=== PATIENT | male | born 1960 | race Caucasian/White ===

== ENCOUNTER 2020-07-31 18:00 | Emergency (ER) | payer MEDICARE ==
[2020-07-31] MEDS ORDERED: SODIUM CHLORIDE 0.9% 1,000 ML IV STA (18:23)
[2020-07-31] MEDS ORDERED: LORazepam 2 MG/ML VIAL IVP STA (18:26)
[2020-07-31 18:32] LABS: BASOPHILS # (AUTO) 0.1 10^3/uL (0.0-0.1); BASOPHILS % (AUTO) 1.1 %; EOSINOPHILS # (AUTO) 0.4 10^3/uL (0.0-0.7); EOSINOPHILS % (AUTO) 3.6 %; HGB - HEMOGLOBIN 14.5 g/dL (14.0-18.0); LYMPHOCYTES # (AUTO) 3.7 10^3/uL (1.5-3.5); LYMPHOCYTES % (AUTO) 37.6 %; MEAN CORPUSCULAR HEMOGLOBIN 29.4 pg (27.0-31.0); MEAN CORPUSCULAR HGB CONC 34.3 g/dL (32.0-36.0); MEAN CORPUSCULAR VOLUME 85.8 fL (80.0-94.0); MEAN PLATELET VOLUME 10.8 fL (7.4-11.4); MONOCYTES # (AUTO) 0.7 10^3/uL (0.0-1.0); MONOCYTES % (AUTO) 7.1 %; NEUTROPHILS # (AUTO) 4.9 10^3/uL (1.5-6.6); NEUTROPHILS % (AUTO) 50.3 %; PLT - PLATELET COUNT 402 10^3/uL (130-450); RED BLOOD COUNT 4.93 10^6/uL (4.70-6.10); RED CELL DISTRIBUTION WIDTH 12.3 % (12.0-15.0); WHITE BLOOD COUNT 9.7 x10^3/uL (4.8-10.8)
[2020-07-31] MEDS ORDERED: levETIRAcetam INJ 500 MG in SODIUM CHLORIDE 0.9% 100ML 100 ML IV STA (18:32)
--- NOTE | 2020-07-31 18:32 | ED Physician Documentation ---
<Frankie Syed - Last Filed: 07/31/20 22:13> PD HPI SEIZURE - Stated complaint Stated Complaint: HIGH BLOOD SUGAR/VOMITING - Chief complaint Chief Complaint: Neuro - History obtained from History obtained from: Patient, Family - History of Present Illness Timing - onset: How many hours ago (several hours ago and increased the past 2 hours.), Today Witnessed: Witnessed Number of seizures: Multiple (patient having left arm and face spasms and twitching, weakness, started earlier today intermittent and then consistent the past 2 hours. Feeling similar to partial seizures he has had in the past.), Lasted > 30 min Description of seizure activity: Focal (left arm and face) Injury during seizure: None Associated symptoms: Headache. No: Chest pain History of seizures: Known seizure disorder (related to prior CVA) Contributing factors: Other (no recent illness). No: Changed meds, Low blood sugar, Fever Similar symptoms before: Diagnosis (focal seizures in the past with similar symptoms.) Review of Systems Constitutional: denies: Fever Nose: denies: Rhinorrhea / runny nose, Congestion Throat: denies: Sore throat Cardiac: denies: Chest pain / pressure Respiratory: denies: Dyspnea, Cough GI: denies: Nausea, Vomiting, Diarrhea Musculoskeletal: denies: Neck pain, Back pain Neurologic: reports: Focal weakness (left arm and leg), Headache PD PAST MEDICAL HISTORY - Past Medical History Cardiovascular: None Respiratory: None Neuro: CVA, Seizure disorder Endocrine/Autoimmune: None - Allergies Allergies/Adverse Reactions: Allergies Allergy/AdvReac Type Severity Reaction Status Date / Time No Known Drug Allergies Allergy Verified 07/31/20 18:19 PD ED PE NORMAL - Vitals Vital signs reviewed: Yes - General General: Alert and oriented X 3, Well developed/nourished, Other (having twitching and spasms of left arm and face, with some trouble speaking. 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 not having spasms of the side right now. Then started having some spasms of left arm. Leg weak but not spasming. ) Eye Opening: Spontaneous Motor: Obeys Commands Verbal: Oriented GCS Score: 15 Results - Rads (name of study) head CT Radiology: Prelim report reviewed (no acute findings.), See rad report PD MEDICAL DECISION MAKING - ED course Complexity details: considered differential (he says the symptoms are c/w prior seizures (partial) and has not had general seizures in the past. Give ativan IV and extra dose Keppra. Check labs. Get CT to ensure not ICH since on anticoags.), d/w patient Departure - Departure Disposition: 01 Home, Self Care Clinical Impression: Seizure Condition: Stable Instructions: ED Seizure Recurrent Follow-Up: YOUR, DOCTOR [Other] - Tomorrow Comments: Take your seizure medicine as directed. Please follow-up with your physician tomorrow. Discharge Date/Time: 07/31/20 20:53 <Omid Luz - Last Filed: 08/01/20 06:31> Results - Vitals Vitals: Vital Signs - 24 hr 07/31/20 07/31/20 07/31/20 18:13 18:44 19:12 Temperature 36.6 C Heart Rate 90 79 81 Respiratory 26 H 14 22 Rate Blood Pressure 141/90 H 133/83 H 152/87 H O2 Saturation 97 95 93 07/31/20 07/31/20 07/31/20 19:30 20:00 20:30 Temperature 36.7 C Heart Rate 81 82 80 Respiratory 14 12 17 Rate Blood Pressure 133/74 H 121/78 132/90 H O2 Saturation 95 95 96 Oxygen O2 Source Room air - Labs Labs: Laboratory Tests 07/31/20 07/31/20 07/31/20 18:17 18:17 18:17 WBC 9.7 RBC 4.93 Hgb 14.5 Hct 42.3 MCV 85.8 MCH 29.4 MCHC 34.3 RDW 12.3 Plt Count 402 MPV 10.8 Neut # (Auto) 4.9 Lymph # (Auto) 3.7 H Swift # (Auto) 0.7 Eos # (Auto) 0.4 Baso # (Auto) 0.1 Absolute Nucleated RBC 0.00 Nucleated RBC % 0.0 PT 11.8 INR 1.1 APTT 26.0 Sodium 132 L Potassium 3.7 Chloride 97 L Carbon Dioxide 20 L Anion Gap 15.0 H BUN 32 H Creatinine 1.5 H Estimated GFR (MDRD) 48 L Glucose 332 H Calcium 8.9 Magnesium 2.1 Total Bilirubin 0.6 AST 16 ALT 18 Alkaline Phosphatase 144 H Total Protein 6.8 Albumin 3.1 L Globulin 3.7 Albumin/Globulin Ratio 0.8 L Lipase 93 H Serum Ketones 07/31/20 18:17 WBC RBC Hgb Hct MCV MCH MCHC RDW Plt Count MPV Neut # (Auto) Lymph # (Auto) Swift # (Auto) Eos # (Auto) Baso # (Auto) Absolute Nucleated RBC Nucleated RBC % PT INR APTT Sodium Potassium Chloride Carbon Dioxide Anion Gap BUN Creatinine Estimated GFR (MDRD) Glucose Calcium Magnesium Total Bilirubin AST ALT Alkaline Phosphatase Total Protein Albumin Globulin Albumin/Globulin Ratio Lipase Serum Ketones NEGATIVE PD MEDICAL DECISION MAKING - ED course Complexity details: reviewed results, re-evaluated patient ED course: Patient was signed out to me at shift change by Dr. Frankie Syed.Patient's labs are reviewed his CT of the head's unremarkable he has not had a seizure during my observation of him. He is back to his baseline he has family at the bedside who will care for him and take him to his physician tomorrow morning.Continue to take Keppra as directed.
[2020-07-31 18:39] LABS: INR 1.1 (0.8-1.2); PT - PROTHROMBIN TIME 11.8 secs (9.9-12.6)
[2020-07-31 18:42] LABS: ALBUMIN 3.1 g/dL (3.2-5.5); ALBUMIN/GLOBULIN RATIO 0.8 (1.0-2.2); BILIRUBIN,TOTAL 0.6 mg/dL (0.2-1.0); CALCIUM 8.9 mg/dL (8.5-10.3); CREATININE 1.5 mg/dL (0.6-1.2); MAGNESIUM 2.1 mg/dL (1.7-2.8); TOTAL PROTEIN 6.8 g/dL (6.7-8.2)
--- NOTE | 2020-07-31 19:16 | CT Report ---
PROCEDURE: HEAD WO INDICATIONS: altered mental status TECHNIQUE: Noncontrast 4.5 mm thick angled axial sections acquired from the foramen magnum to the vertex. For r adiation dose reduction, the following was used: automated exposure control, adjustment of mA and/or kV according to patient size. COMPARISON: None. FINDINGS: Image quality: Excellent. CSF spaces: Basal cisterns are patent. No extra-axial fluid collections. Ventricles are normal in size and shape. Brain: No midline shift. No intracranial masses or hemorrhage. Garcia-white matter interface is norm al. Skull and face: Calvarium and visualized facial bones are intact, without suspicious lesions. Sinuses: Visualized sinuses and mastoids are clear. IMPRESSION: No acute intracranial process. Reviewed by: Kemal Willard MD on 07/31/2020 7:15 PM PDT Approved by: Kemal Willard MD on 07/31/2020 7:15 PM PDT Station ID: [id number]
[2020-07-31 20:45] VITALS: BP 132/90
== END 2020-07-31 20:53 | disposition home or self-care (01) ==
LOC: ED 18:00
DX: R56.9 Unspecified convulsions (principal)
CPT/HCPCS: 36415; 70450; 80053; 82009; 83690; 83735; 85025; 85610; 85730; 93005; 96365; 96375; 99284; J2060

== ENCOUNTER 2020-08-03 00:45 | Emergency (ER) | payer MEDICARE ==
--- NOTE | 2020-08-03 00:53 | ED Physician Documentation ---
History of Present Illness - Stated complaint Stated Complaint: SZ - Chief complaint Chief Complaint: Neuro - History obtained from History obtained from: Family - Additonal information Additional information: The patient is a 59-year-old male brought in by the patient's niece with a chief complaint of recurrent seizures the patient was seen here 2 days ago for the same chief complaint and patient's niece reports that he is having recurrent episodes of what she is describing is generalized tonic-clonic seizures without fevers or head injury she reports that he has a history of recurrent strokes as well as heart failure and multiple other medical comorbidities to include insulin-dependent diabetes with a 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 The remainder the history is unknown looking through the patient's shira He has a history of what appears to be congestive heart failure chronic elevated troponins acute renal failure and acute kidney injury as well as recurrent strokes and recurrent seizures the patient's niece reports that he is never been evaluated by neurology and is requesting him to be transferred to a facility that has neurology that can properly evaluate him. Review of Systems Unable to obtain: Confused Immunocompromised: reports: Reviewed and negative PD PAST MEDICAL HISTORY - Past Medical History Cardiovascular: None Respiratory: None Neuro: CVA, Seizure disorder Endocrine/Autoimmune: None - Past Surgical History Past Surgical History: Yes Ortho: Amputation - Present Medications Home Medications: Ambulatory Orders Medication Instructions Recorded Confirmed Home Medications Unobtainable 08/03/20 08/03/20 [HOME MEDICATIONS UNOBTAINABLE] - Allergies Allergies/Adverse Reactions: Allergies Allergy/AdvReac Type Severity Reaction Status Date / Time No Known Drug Allergies Allergy Verified 08/03/20 00:56 - Social History Does the pt smoke?: Yes Smoking Status: Former smoker Does the pt drink ETOH?: Yes Does the pt have substance abuse?: No - POLST Patient has POLST: No PD ED PE NORMAL - Vitals Vital signs reviewed: Yes - General General: Other (Confused 59-year-old male having episodes ofConfused 59-year-old male having episodes of Shaking diffusely, Patient is confused) - HEENT HEENT: Atraumatic, PERRL, Other - Neck Neck: Supple, no meningeal sign - Cardiac Cardiac: RRR, No murmur, Strong equal pulses - Respiratory Respiratory: No respiratory distress, Clear bilaterally - Abdomen Abdomen: Normal bowel sounds, Soft, Non tender, Non distended - Derm Derm: Warm and dry, No rash - Extremities Extremities: Other (A chronic right below the knee amputation with prosthetic in place) - Neuro Neuro: Other (Patient is confused he does not answer questions appropriately he has intermittent episodes were her has this these episodes of generalized shakingAnd convulsing.No facial droop no unilateral weakness.) - Psych Psych: Other (patient is confused) Results - Vitals Vitals: Vital Signs - 24 hr 08/03/20 08/03/20 08/03/20 00:45 01:30 01:45 Temperature 36.0 C L Heart Rate 103 H 99 97 Respiratory 20 29 H 29 H Rate Blood Pressure 191/123 H 141/101 H 142/101 H O2 Saturation 96 93 98 08/03/20 08/03/20 08/03/20 02:00 02:24 02:30 Temperature Heart Rate 99 97 Respiratory 23 24 18 Rate Blood Pressure 178/110 H 190/130 H O2 Saturation 93 93 96 08/03/20 08/03/20 08/03/20 03:00 03:30 04:00 Temperature Heart Rate 91 91 88 Respiratory 18 16 17 Rate Blood Pressure 165/111 H 168/113 H 180/105 H O2 Saturation 96 93 92 08/03/20 04:30 Temperature Heart Rate 86 Respiratory 13 Rate Blood Pressure 190/105 H O2 Saturation 97 Oxygen O2 Source Oxymask Oxygen Flow Rate 2 - EKG (time done) 01:21 Rate: Other (no stemi) - Labs Labs: Laboratory Tests 08/03/20 08/03/20 08/03/20 01:10 01:10 01:10 WBC 12.4 H RBC 4.88 Hgb 13.9 L Hct 42.8 MCV 87.7 MCH 28.5 MCHC 32.5 RDW 12.4 Plt Count 405 MPV 11.0 Neut # (Auto) Not Reportable Lymph # (Auto) Not Reportable Horry # (Auto) Not Reportable Eos # (Auto) Not Reportable Baso # (Auto) Not Reportable Absolute Nucleated RBC Not Reportable Total Counted 100 Band Neuts % (Manual) 0 Abnorm Lymph % (Manual) 2 Nucleated RBC % Not Reportable Neutrophils # (Manual) 3.1 Lymphocytes # (Manual) 7.4 H Monocytes # (Manual) 1.1 H Eosinophils # (Manual) 0.6 Basophils # (Manual) 0.1 Differential Comment MANUAL DIFFERENTIAL WBC Morphology NORMAL APPEARANCE Platelet Estimate NORMAL (130-450,000) Platelet Morphology NORMAL DONNA RBC Morph Micro Appear NORMAL APPEARANCE PT 9.9 INR 0.9 APTT 23.8 L VBG pH VBG pCO2 VBG pO2 VBG HCO3 VBG Total CO2 VBG O2 Saturation VBG Base Excess Sodium 136 Potassium 4.2 Chloride 100 L Carbon Dioxide 25 Anion Gap 11.0 BUN 40 H Creatinine 1.7 H Estimated GFR (MDRD) 42 L Glucose 157 H POC Whole Bld Glucose Lactic Acid Calcium 9.2 Magnesium 2.1 Total Bilirubin 0.3 AST 21 ALT 20 Alkaline Phosphatase 148 H Troponin I High Sens Total Protein 7.0 Albumin 3.1 L Globulin 3.9 Albumin/Globulin Ratio 0.8 L Lipase 30 TSH Urine Color Urine Clarity Urine pH Ur Specific Navarro Urine Protein Urine Glucose (UA) Urine Ketones Urine Occult Blood Urine Nitrite Urine Bilirubin Urine Urobilinogen Ur Leukocyte Esterase Urine RBC Urine WBC Ur Squamous Epith Cells Urine Bacteria Ur Microscopic Review Urine Culture Comments Salicylates < 6.0 Urine Opiates Screen Ur Oxycodone Screen Urine Methadone Screen Ur Propoxyphene Screen Acetaminophen < 10 L Ur Barbiturates Screen Ur Tricyclics Screen Ur Phencyclidine Scrn Ur Amphetamine Screen U Methamphetamines Scrn U Benzodiazepines Scrn Urine Cocaine Screen U Cannabinoids Screen Ethyl Alcohol < 5.0 Serum Ketones NEGATIVE 08/03/20 08/03/20 08/03/20 01:10 01:10 01:10 WBC RBC Hgb Hct MCV MCH MCHC RDW Plt Count MPV Neut # (Auto) Lymph # (Auto) [place] # (Auto) Eos # (Auto) Baso # (Auto) Absolute Nucleated RBC Total Counted Band Neuts % (Manual) Abnorm Lymph % (Manual) Nucleated RBC % Neutrophils # (Manual) Lymphocytes # (Manual) Monocytes # (Manual) Eosinophils # (Manual) Basophils # (Manual) Differential Comment WBC Morphology Platelet Estimate Platelet Morphology RBC Morph Micro Appear PT INR APTT VBG pH VBG pCO2 VBG pO2 VBG HCO3 VBG Total CO2 VBG O2 Saturation VBG Base Excess Sodium Potassium Chloride Carbon Dioxide Anion Gap BUN Creatinine Estimated GFR (MDRD) Glucose POC Whole Bld Glucose Lactic Acid 2.3 H Calcium Magnesium Total Bilirubin AST ALT Alkaline Phosphatase Troponin I High Sens 149.2 H* Total Protein Albumin Globulin Albumin/Globulin Ratio Lipase TSH 0.89 Urine Color Urine Clarity Urine pH Ur Specific Navarro Urine Protein Urine Glucose (UA) Urine Ketones Urine Occult Blood Urine Nitrite Urine Bilirubin Urine Urobilinogen Ur Leukocyte Esterase Urine RBC Urine WBC Ur Squamous Epith Cells Urine Bacteria Ur Microscopic Review Urine Culture Comments Salicylates Urine Opiates Screen Ur Oxycodone Screen Urine Methadone Screen Ur Propoxyphene Screen Acetaminophen Ur Barbiturates Screen Ur Tricyclics Screen Ur Phencyclidine Scrn Ur Amphetamine Screen U Methamphetamines Scrn U Benzodiazepines Scrn Urine Cocaine Screen U Cannabinoids Screen Ethyl Alcohol Serum Ketones 08/03/20 08/03/20 08/03/20 01:10 01:30 01:49 WBC RBC Hgb Hct MCV MCH MCHC RDW Plt Count MPV Neut # (Auto) Lymph # (Auto) [place] # (Auto) Eos # (Auto) Baso # (Auto) Absolute Nucleated RBC Total Counted Band Neuts % (Manual) Abnorm Lymph % (Manual) Nucleated RBC % Neutrophils # (Manual) Lymphocytes # (Manual) Monocytes # (Manual) Eosinophils # (Manual) Basophils # (Manual) Differential Comment WBC Morphology Platelet Estimate Platelet Morphology RBC Morph Micro Appear PT INR APTT VBG pH 7.360 VBG pCO2 47.5 VBG pO2 34.8 VBG HCO3 26.2 VBG Total CO2 27.7 VBG O2 Saturation 67.7 VBG Base Excess 0.2 Sodium Potassium Chloride Carbon Dioxide Anion Gap BUN Creatinine Estimated GFR (MDRD) Glucose POC Whole Bld Glucose 147 H Lactic Acid Calcium Magnesium Total Bilirubin AST ALT Alkaline Phosphatase Troponin I High Sens Total Protein Albumin Globulin Albumin/Globulin Ratio Lipase TSH Urine Color YELLOW Urine Clarity CLEAR Urine pH 5.5 Ur Specific Navarro 1.025 Urine Protein >=300 H Urine Glucose (UA) >=1000 H Urine Ketones NEGATIVE Urine Occult Blood TRACE-INTA Urine Nitrite NEGATIVE Urine Bilirubin NEGATIVE Urine Urobilinogen 0.2 (NORMAL) Ur Leukocyte Esterase NEGATIVE Urine RBC 0-5 Urine WBC 0-3 Ur Squamous Epith Cells FEW Squamous Urine Bacteria Rare Ur Microscopic Review INDICATED Urine Culture Comments NOT INDICATED Salicylates Urine Opiates Screen NEGATIVE Ur Oxycodone Screen NEGATIVE Urine Methadone Screen NEGATIVE Ur Propoxyphene Screen NEGATIVE Acetaminophen Ur Barbiturates Screen NEGATIVE Ur Tricyclics Screen NEGATIVE Ur Phencyclidine Scrn NEGATIVE Ur Amphetamine Screen NEGATIVE U Methamphetamines Scrn NEGATIVE U Benzodiazepines Scrn NEGATIVE Urine Cocaine Screen NEGATIVE U Cannabinoids Screen NEGATIVE Ethyl Alcohol Serum Ketones 08/03/20 02:40 WBC RBC Hgb Hct MCV MCH MCHC RDW Plt Count MPV Neut # (Auto) Lymph # (Auto) [place] # (Auto) Eos # (Auto) Baso # (Auto) Absolute Nucleated RBC Total Counted Band Neuts % (Manual) Abnorm Lymph % (Manual) Nucleated RBC % Neutrophils # (Manual) Lymphocytes # (Manual) Monocytes # (Manual) Eosinophils # (Manual) Basophils # (Manual) Differential Comment WBC Morphology Platelet Estimate Platelet Morphology RBC Morph Micro Appear PT INR APTT VBG pH VBG pCO2 VBG pO2 VBG HCO3 VBG Total CO2 VBG O2 Saturation VBG Base Excess Sodium Potassium Chloride Carbon Dioxide Anion Gap BUN Creatinine Estimated GFR (MDRD) Glucose POC Whole Bld Glucose Lactic Acid Calcium Magnesium Total Bilirubin AST ALT Alkaline Phosphatase Troponin I High Sens 142.9 H* Total Protein Albumin Globulin Albumin/Globulin Ratio Lipase TSH Urine Color Urine Clarity Urine pH Ur Specific Navarro Urine Protein Urine Glucose (UA) Urine Ketones Urine Occult Blood Urine Nitrite Urine Bilirubin Urine Urobilinogen Ur Leukocyte Esterase Urine RBC Urine WBC Ur Squamous Epith Cells Urine Bacteria Ur Microscopic Review Urine Culture Comments Salicylates Urine Opiates Screen Ur Oxycodone Screen Urine Methadone Screen Ur Propoxyphene Screen Acetaminophen Ur Barbiturates Screen Ur Tricyclics Screen Ur Phencyclidine Scrn Ur Amphetamine Screen U Methamphetamines Scrn U Benzodiazepines Scrn Urine Cocaine Screen U Cannabinoids Screen Ethyl Alcohol Serum Ketones PD MEDICAL DECISION MAKING - ED course Complexity details: reviewed old records, reviewed results, re-evaluated patient, considered differential, d/w patient, d/w family ED course: 59-year-old male brought in by niece for the second time in the last 2 days for what she is describing as recurrent seizures. The patient has just moved to this area so we have no previous records for comparison his SHIRA Shows multiple hospitalist to multiple different locations in the [facility] over the past year which appear to show multiple admissions and emergency room visits diagnoses listed include CVA insulin-dependent diabetes hypertension hyperlipidemia seizures heart failure kidney failure elevated troponins. Other than this have minimal history that is obtained from the niece and the patient is unable to provide any history. The patient did have multiple episodes here of generalized shaking And convulsing. CT of the head's unremarkable his EKG shows no STEMI his high-sensitivity troponin is elevated but the repeat has decreased according to what records I do have available it appears that this is not new for him he has no chest pain he has no STEMI on EKG I did attempt to call the floor care specialist at [facility] in [place] multiple times but did not receive a return phone call. He is hemodynamically stable I have an accepting neurologist as well as an accepting hospitalist patient will be transferred via ground ACLS patient's family has been updated and is agreeable to this plan.Patient was given a loading dose of Keppra is according to the family that is his home dose and he also was given 1 mg of Ativan and placed on the monitor after his initial episode of shaking and convulsing he has not had any seizure- like activity here in the emergency department. - Consults Consults: Discussed case with (dr. Jain the neurologist at [facility] in [place] agreed to accept this patient in transfer for MRI and EEG, spoke with hospitalist dr. varghese who agreed to accept this patient. consulted cardiology there multiple times but no call returned.spoke with dr. haque ER physician, agrees to accept.) - Critical Care Time(min): 30 Time Includes: Direct patient care, Review records, Reassess patient, Document care, Coordinate care, Medical consult, Family consult for tx dec Data interpretation: Labs, CXR Procedures included in critical care time: Peripheral IV Procedures excluded from critical care time: EKG Departure - Departure Disposition: 02 Transfer Acute Care Hosp Clinical Impression: Recurrent seizures, Acute kidney injury, IDDM (insulin dependent diabetes mellitus) Leukocytosis Qualifiers: Leukocytosis type: unspecified Qualified Code(s): D72.829 - Elevated white blood cell count, unspecified Condition: Stable Discharge Date/Time: 08/03/20 05:00
[2020-08-03] MEDS ORDERED: LORazepam 2 MG/ML VIAL IVP STA (00:56)
[2020-08-03] MEDS ORDERED: SODIUM CHLORIDE 0.9% 1,000 ML IV STA (00:56)
[2020-08-03] MEDS ORDERED: levETIRAcetam INJ 1,000 MG in SODIUM CHLORIDE 0.9% 100ML 100 ML IV STA (00:57)
[2020-08-03 01:22] LABS: BASOPHILS % (AUTO) 1.2 %; EOSINOPHILS % (AUTO) 5.6 %; HGB - HEMOGLOBIN 13.9 g/dL (14.0-18.0); LYMPHOCYTES % (AUTO) 46.6 %; MEAN CORPUSCULAR HEMOGLOBIN 28.5 pg (27.0-31.0); MEAN CORPUSCULAR HGB CONC 32.5 g/dL (32.0-36.0); MEAN CORPUSCULAR VOLUME 87.7 fL (80.0-94.0); MONOCYTES % (AUTO) 7.4 %; NEUTROPHILS % (AUTO) 38.6 %; PLT - PLATELET COUNT 405 10^3/uL (130-450); RED BLOOD COUNT 4.88 10^6/uL (4.70-6.10); RED CELL DISTRIBUTION WIDTH 12.4 % (12.0-15.0); WHITE BLOOD COUNT 12.4 x10^3/uL (4.8-10.8)
[2020-08-03 01:25] LABS: VBG BASE EXCESS 0.2 mmol/L (-2 - +2); VBG PCO2 47.5 mmHg (41-51); VBG PH 7.36 (7.31-7.41); VBG PO2 34.8 mmHg (25-47); VBG TOTAL CO2 27.7 mmol/L (24-29)
[2020-08-03 01:32] LABS: BAND NEUTROPHILS % (MANUAL) 0 %
[2020-08-03 01:34] LABS: INR 0.9 (0.8-1.2); PT - PROTHROMBIN TIME 9.9 secs (9.9-12.6)
[2020-08-03 01:41] LABS: PARTIAL THROMBOPLASTIN TIME 23.8 secs (24.9-33.3)
[2020-08-03 01:43] LABS: ACETAMINOPHEN < 10 ug/mL (10-30); ALBUMIN 3.1 g/dL (3.2-5.5); ALBUMIN/GLOBULIN RATIO 0.8 (1.0-2.2); ALKALINE PHOSPHATASE 148 IU/L (42-121); ALT ALANINE AMINOTRANSFERASE 20 IU/L (10-60); AST ASPARTATE AMINOTRANSFERASE 21 IU/L (10-42); BILIRUBIN,TOTAL 0.3 mg/dL (0.2-1.0); BUN - BLOOD UREA NITROGEN 40 mg/dL (6-20); CALCIUM 9.2 mg/dL (8.5-10.3); CARBON DIOXIDE - CO2 25 mmol/L (21-32); CHLORIDE 100 mmol/L (101-111); CREATININE 1.7 mg/dL (0.6-1.2); GLUCOSE 157 mg/dL (70-100); LIPASE 30 U/L (22-51); MAGNESIUM 2.1 mg/dL (1.7-2.8); SALICYLATE < 6.0 mg/dL; SODIUM 136 mmol/L (135-145)
[2020-08-03 01:54] LABS: KETONES, SERUM (ACETEST) NEGATIVE (NEGATIVE)
[2020-08-03 02:00] LABS: ABNORMAL LYMPHS % (MANUAL) 2 %; BASOPHILS # (MANUAL) 0.1 10^3/uL (0-0.1); BASOPHILS % (MANUAL) 1 %; DIFFERENTIAL COMMENT MANUAL DIFFERENTIAL; EOSINOPHILS # (MANUAL) 0.6 10^3/uL (0-0.7); LYMPHOCYTES # (MANUAL) 7.4 10^3/uL (1.5-3.5); LYMPHOCYTES % (MANUAL) 58 %; MONOCYTES # (MANUAL) 1.1 10^3/uL (0.0-1.0); PLATELET ESTIMATE, MANUAL NORMAL (130-450,000) (NORMAL); PLATELET MORPHOLOGY NORMAL APP (NORMAL); RBC MORPHOLOGY (MULTIPLE) NORMAL APPEARANCE (NORMAL)
[2020-08-03 02:03] LABS: MUDS CUTOFF CONCENTRATIONS CUTOFF CONC BELOW:
[2020-08-03 02:04] LABS: BILIRUBIN,URINE NEGATIVE (NEGATIVE); GLUCOSE, URINE (UA) >=1000 mg/dL (NEGATIVE); KETONES,URINE (UA) NEGATIVE (NEGATIVE); LEUKOCYTE ESTERASE, URINE NEGATIVE (NEGATIVE); NITRITE,URINE NEGATIVE (NEGATIVE); OCCULT BLOOD,URINE TRACE-INTA (NEGATIVE); PH,URINE 5.5 PH (5.0-7.5); PROTEIN,URINE >=300 mg/dL (NEGATIVE); UROBILINOGEN,URINE 0.2 (NORMAL) E.U./dL (NORMAL)
[2020-08-03] MEDS ORDERED: ACETAMINOPHEN 1,000 MG/100 ML 100 ML IV ONE (02:12)
[2020-08-03 02:14] LABS: AMPHETAMINE SCREEN,URINE NEGATIVE (NEGATIVE); BENZODIAZEPINES SCREEN, URINE NEGATIVE (NEGATIVE); CLARITY,URINE CLEAR (CLEAR); COCAINE SCREEN URINE NEGATIVE (NEGATIVE); METHADONE SCREEN, URINE NEGATIVE (NEGATIVE); METHAMPHETAMINES SCREEN, URINE NEGATIVE (NEGATIVE); OPIATE SCREEN, URINE NEGATIVE (NEGATIVE); OXYCODONE SCREEN, URINE NEGATIVE (NEGATIVE); PROPOXYPHENE SCREEN, URINE NEGATIVE (NEGATIVE); TRICYCLIC ANTIDEPRESSANT,URINE NEGATIVE (NEGATIVE)
[2020-08-03 02:17] LABS: BACTERIA,URINE Rare /HPF (None Seen); RBC,URINE 0-5 /HPF (0-5); SQUAMOUS EPITHELIAL CELL,UR FEW Squamous (<= Few)
[2020-08-03 04:50] VITALS: BP 190/105
--- NOTE | 2020-08-03 07:32 | XRAY Report ---
PROCEDURE: Chest 1 View X-Ray INDICATIONS: sob TECHNIQUE: One view of the chest was acquired. COMPARISON: None FINDINGS: Surgical changes and devices: None. Lungs and pleura: No pleural effusions or pneumothorax. Lungs are clear. Mediastinum: Mediastinal contours appear normal. Heart size is normal. Bones and chest wall: No suspicious bony lesions. Overlying soft tissues appear unremarkable. IMPRESSION: No acute cardiopulmonary disease. Reviewed by: Rosa Scott MD on 08/03/2020 7:31 AM PDT Approved by: Rosa Scott MD on 08/03/2020 7:31 AM PDT Station ID: [id number]
--- NOTE | 2020-08-03 07:35 | CT Report ---
PROCEDURE: HEAD WO INDICATIONS: AMS TECHNIQUE: Noncontrast 4.5 mm thick angled axial sections acquired from the foramen magnum to the vertex. For r adiation dose reduction, the following was used: automated exposure control, adjustment of mA and/or kV according to patient size. COMPARISON: 07/31/2020 FINDINGS: Image quality: Excellent. CSF spaces: Basal cisterns are patent. No extra-axial fluid collections. Ventricles are normal in size and shape. Brain: No midline shift. No intracranial masses or hemorrhage. Mild patchy periventricular white ma tter hypodensity, particularly in the frontal lobes. Garcia-white matter interface is normal. Skull and face: Calvarium and visualized facial bones are intact, without suspicious lesions. Sinuses: Visualized sinuses and mastoids are clear. IMPRESSION: 1. No CT evidence of acute process. 2. Mild changes of chronic small vessel ischemic disease. No significant change compared to the prior study. 3. Concordant with preliminary report. Reviewed by: Rosa Scott MD on 08/03/2020 7:34 AM PDT Approved by: Rosa Scott MD on 08/03/2020 7:34 AM PDT Station ID: [id number]
== END 2020-08-03 05:00 | disposition short-term general hospital (02) ==
LOC: ED 00:45
DX: G40.909 Epilepsy, unspecified, not intractable, without status epilepticus (principal); N17.9 Acute kidney failure, unspecified; D72.829 Elevated white blood cell count, unspecified; E11.9 Type 2 diabetes mellitus without complications; Z87.891 Personal history of nicotine dependence; Z79.4 Long term (current) use of insulin
CPT/HCPCS: 36415; 70450; 71045; 80053; 81001; 82009; 82803; 83605; 83690; 83735; 84443; 84484; 85025; 85610; 85730; 93005; 96365; 96367; 96375; 99285; 99291; J0131; J2060; 80306; 80307; 80320; 80329; 81003; 87086

== ENCOUNTER 2020-08-07 08:00 | Outpatient (CLI) | payer MEDICARE | END 2020-08-07 23:59 | disposition home or self-care (01) | LOC: LAB.R 08:00 | PROVIDERS: ATTEND Nurse Practitioner | DX: E11.9 Type 2 diabetes mellitus without complications (principal) | CPT/HCPCS: 87070; 87181; 87205 ==

== ENCOUNTER 2020-08-21 10:28 | Emergency (ER) | payer MEDICARE ==
--- NOTE | 2020-08-21 10:49 | ED Physician Documentation ---
PD HPI SKIN - Stated complaint Stated Complaint: LT LEG SWELLING/INFECTION - Chief complaint Chief Complaint: Ext Problem - History obtained from History obtained from: Patient - History of Present Illness Timing - onset: How many weeks ago (he has had a new leg uldceration the past couple weeks. Has had others on lower legs (with some on right leg leading to BKA amputation due to deeper infection). Left leg with new ulceration recently and getting home nurse dressings/eval ordered through PCP from [facility]. Cx few days ago MSSA.), Other (His PCP from [facility] is wanting pt to have local care and evaluation. Pt had tried getting PCP but appt was not until Sep 02 (this was 1-2 months ago that he called for appt, per pt).) Timing - details: Gradual onset, Still present Location: LLE Quality / character: Painful (at the site, but also having pain left hip, he feels from walking abnormal due to pain in lower leg.), Draining. No: Itchy, Discolored Associated symptoms: Joint pain (left hip). No: Fever, Myalgias, N/V/D Contributing factors: No: Insect bite /sting, Recent illness Similar symptoms before: Diagnosis (leg ulcers and infections recurrently due to diabetes.) Recently seen: Not recently seen (not by provider but had home health eval with dressing and culture last week.) Review of Systems Constitutional: reports: Fatigue. denies: Fever, Chills, Myalgias Nose: denies: Rhinorrhea / runny nose, Congestion Throat: denies: Sore throat Respiratory: denies: Cough GI: denies: Abdominal Pain, Nausea, Vomiting Skin: reports: Lesions PD PAST MEDICAL HISTORY - Past Medical History Cardiovascular: None Respiratory: None Neuro: CVA, Seizure disorder Endocrine/Autoimmune: None - Past Surgical History Past Surgical History: Yes Ortho: Amputation - Present Medications Home Medications: Ambulatory Orders Medication Instructions Recorded Confirmed Amitriptyline HCl 50 mg PO QPM #30 tablet 08/21/20 Chlorhexidine Gluconate [Hibiclens] 15 ml TP DAILY #236 ml 08/21/20 Doxycycline Monohydrate 100 mg PO BID #14 tablet 08/21/20 Hydrocodone/Acetaminophen [Donie 1 each PO Q6H PRN #15 tablet 08/21/20 5-325 Tablet] Mupirocin 1 applic TP DAILY #15 g 10/01/20 Tizanidine HCl 4 mg PO BID #30 capsule 08/21/20 - Allergies Allergies/Adverse Reactions: Allergies Allergy/AdvReac Type Severity Reaction Status Date / Time daptomycin Allergy Rash Verified 08/21/20 10:38 vancomycin Allergy Rash Verified 08/21/20 10:38 - Social History Does the pt smoke?: Yes Smoking Status: Former smoker Does the pt drink ETOH?: Yes Does the pt have substance abuse?: No - POLST Patient has POLST: No PD ED PE NORMAL - Vitals Vital signs reviewed: Yes - General General: Alert and oriented X 3, No acute distress, Well developed/nourished - Neck Neck: Supple, no meningeal sign, No adenopathy - Cardiac Cardiac: RRR, No murmur - Respiratory Respiratory: Clear bilaterally - Abdomen Abdomen: Normal bowel sounds, Soft, Non tender, Non distended - Derm Derm: Normal color, Warm and dry - Extremities Extremities: Other (right BKA with prosthesis. Left lower leg with anterior ulceration wound to deep dermal and has mild clearing drainage from one spot. No fluctuance. No surrounding muscle tenderness or redness. The ulceration is about 2 cm, and had a dressing in place on arrrival, which was changed out here. ). No: Normal ROM s pain (left hip hurting with flexion and external rotation. Not with passive rotation nor impaction. Tender at upper to mid SI area in particular. ) Results - Vitals Vitals: Vital Signs - 24 hr 08/21/20 08/21/20 10:31 13:35 Temperature 37.3 C 36.9 C Heart Rate 93 88 Respiratory 18 14 Rate Blood Pressure 167/107 H 189/116 H O2 Saturation 100 97 Oxygen O2 Source Room air - Labs Labs: Laboratory Tests 08/21/20 08/21/20 08/21/20 11:49 11:49 11:49 WBC 10.4 RBC 4.77 Hgb 13.7 L Hct 41.4 L MCV 86.8 MCH 28.7 MCHC 33.1 RDW 12.5 Plt Count 381 MPV 12.2 H Neut # (Auto) 5.2 Lymph # (Auto) 3.2 [place] # (Auto) 1.2 H Eos # (Auto) 0.7 Baso # (Auto) 0.1 Absolute Nucleated RBC 0.00 Nucleated RBC % 0.0 ESR 5 Sodium 132 L Potassium 4.7 Chloride 101 Carbon Dioxide 23 Anion Gap 8.0 BUN 40 H Creatinine 1.8 H Estimated GFR (MDRD) 39 L Glucose 487 H Calcium 8.8 Total Bilirubin 0.7 AST 14 ALT 17 Alkaline Phosphatase 131 H Total Creatine Kinase 182 Total Protein 7.1 Albumin 3.2 Globulin 3.9 Albumin/Globulin Ratio 0.8 L Lipase 50 - Rads (name of study) left hip xray Radiology: Prelim report reviewed (no DJD nor fracture), See rad report duplex left leg Radiology: Prelim report reviewed (no DVT), See rad report PD MEDICAL DECISION MAKING - ED course Complexity details: reviewed results (recent leg wound culture positive for MSSA. will cover with DOxy due to renal insufficiency (preferable over Bactrim or Keflex in that setting).), re-evaluated patient (does not have local PCP appt until Sep 02? His PCP from [facility] is not wanting to extend his care locally to here, but has continued regular Rx until new appt. So pt could not get Rx for new dx infection and home nursing care is ending soon. He moved here few months ago.), considered differential (COnsider DVT in leg given the swelling. The superficial ulcer does not seem to extend deep. Can check ESR and CBC. Has pain at left hip as well, so get xray to eval for DJD, unlikely occult fracture without injury mechanism per se. ), d/w patient Departure - Departure Disposition: 01 Home, Self Care Clinical Impression: Hip pain Lower extremity ulceration Qualifiers: Laterality: left Non-pressure ulcer stage: limited to breakdown of skin Qualified Code(s): L97.921 - Non-pressure chronic ulcer of unspecified part of left lower leg limited to breakdown of skin Sacroiliac (ligament) sprain Qualifiers: Encounter type: initial encounter Qualified Code(s): S33.6XXA - Sprain of sacroiliac joint, initial encounter Condition: Stable Record reviewed to determine appropriate education?: Yes Instructions: ED Sacroiliitis, ED Ulcer Skin Simple Prescriptions: Amitriptyline HCl 50 mg PO QPM #30 tablet Doxycycline Monohydrate 100 mg PO BID #14 tablet Chlorhexidine Gluconate [Hibiclens] 15 ml TP DAILY #236 ml Mupirocin 1 applic TP DAILY #15 g Hydrocodone/Acetaminophen [Donie 5-325 Tablet] 1 each PO Q6H PRN #15 tablet PRN Reason: Pain Tizanidine HCl 4 mg PO BID #30 capsule Comments: Bouts are seen on your ultrasound and your x-ray of your hip appears normal so no obvious arthritic changes. Presume you are having some inflammation at the SI joint and the muscles around the hip. This could also be causing nerve root inflammation down the leg as the nerves passed through the MASON joint area. We can try treating this with some mild anti-inflammatories, such as Naproxen1-2 tablets twice daily. Do not take them too much so as to not affect your kidneys or stomach. To that add Tylenol or hydrocodone if needed for pain. You can use the Tylenol 500 mg 4 times a day regularly. 4 pain around the hip, we can try a muscle relaxant to with tizanidine twice daily. Also amitriptyline can be used to help with nerve pain/neuropathy nightly for the next few weeks. Hopefully this will take you to your appointment scheduled with a new primary care. Meanwhile treat the leg wound with doxycycline oral antibiotic and mupirocin topical. Use chlorhexidine body wash to clean off certainly the legs and lower body to prevent new areas from getting nearby infections. Discharge Date/Time: 08/21/20 13:36
[2020-08-21] MEDS ORDERED: KETOROLAC 30 MG/ML VIAL IM STA (11:32)
[2020-08-21] MEDS ORDERED: HYDROcod/ACETAM 5/325 MG TABLET PO STA (11:32)
[2020-08-21] MEDS ORDERED: MUPIROCIN 2% OINT 1 GM TOP STA ×2 (11:33→12:44)
[2020-08-21] MEDS ORDERED: DOXYCYCLINE 100 MG TABLET PO STA (11:35)
[2020-08-21 11:57] LABS: BASOPHILS # (AUTO) 0.1 10^3/uL (0.0-0.1); BASOPHILS % (AUTO) 1.3 %; EOSINOPHILS # (AUTO) 0.7 10^3/uL (0.0-0.7); HGB - HEMOGLOBIN 13.7 g/dL (14.0-18.0); LYMPHOCYTES # (AUTO) 3.2 10^3/uL (1.5-3.5); LYMPHOCYTES % (AUTO) 30.3 %; MEAN CORPUSCULAR HEMOGLOBIN 28.7 pg (27.0-31.0); MEAN CORPUSCULAR HGB CONC 33.1 g/dL (32.0-36.0); MEAN CORPUSCULAR VOLUME 86.8 fL (80.0-94.0); MEAN PLATELET VOLUME 12.2 fL (7.4-11.4); MONOCYTES # (AUTO) 1.2 10^3/uL (0.0-1.0); MONOCYTES % (AUTO) 11.2 %; NEUTROPHILS # (AUTO) 5.2 10^3/uL (1.5-6.6); NEUTROPHILS % (AUTO) 49.4 %; PLT - PLATELET COUNT 381 10^3/uL (130-450); RED BLOOD COUNT 4.77 10^6/uL (4.70-6.10); RED CELL DISTRIBUTION WIDTH 12.5 % (12.0-15.0); WHITE BLOOD COUNT 10.4 x10^3/uL (4.8-10.8)
--- NOTE | 2020-08-21 11:59 | XRAY Report ---
PROCEDURE: Hip w/Pelvis 2-3V LT INDICATIONS: hip and leg pain TECHNIQUE: AP pelvis with lateral view(s) of the bilateral hip(s). COMPARISON: None. FINDINGS: Bones: No acute fracture or dislocation. No suspicious lytic or blastic osseous lesion. Moderate oste ophytic change about the left left hip joint with joint space narrowing, marginal osteophytosis, and subchondral sclerosis as well as some suspected subchondral cystic change in the femoral head. There is a left hip effusion. Sacroiliac joint spaces are maintained. Soft tissues: The visualized bowel gas pattern is normal. No suspicious soft tissue calcifications. IMPRESSION: Moderate left hip osteoarthritis with mild to moderate-sized left hip joint effusion. No n-emergent outpatient MRI of the hip could be used for further evaluation. Reviewed by: Oliver Arthur MD on 08/21/2020 11:58 AM PDT Approved by: Oliver Arthur MD on 08/21/2020 11:58 AM PDT Station ID: [id number]
[2020-08-21 12:11] LABS: ALBUMIN 3.2 g/dL (3.2-5.5); ALBUMIN/GLOBULIN RATIO 0.8 (1.0-2.2); BILIRUBIN,TOTAL 0.7 mg/dL (0.2-1.0); CALCIUM 8.8 mg/dL (8.5-10.3); CREATININE 1.8 mg/dL (0.6-1.2); TOTAL PROTEIN 7.1 g/dL (6.7-8.2)
--- NOTE | 2020-08-21 12:58 | Ultrasound Report ---
PROCEDURE: Duplex Ext Veins Left INDICATIONS: leg/calf pain up to hip; lower leg wounds TECHNIQUE: Real-time imaging, as well as color and pulse Doppler interrogation, were performed of the lower extr emity deep veins from the inguinal ligament to the popliteal fossa. COMPARISON: None. FINDINGS: The deep veins are normally compressible, and free of intraluminal thrombus. Color and pu lse Doppler demonstrate normal phasic intraluminal flow. There is normal augmentation response to di stal compression maneuver. IMPRESSION: No deep venous thrombosis. Reviewed by: Thalia Winslow MD on 08/21/2020 12:57 PM PDT Approved by: Thalia Winslow MD on 08/21/2020 12:57 PM PDT Station ID: [id number]
[2020-08-21 13:36] VITALS: BP 189/116
[2020-08-29 06:20] LABS: ANA SCREEN NEGATIVE (NEGATIVE)
== END 2020-08-21 13:36 | disposition home or self-care (01) ==
LOC: ED 10:28
DX: E11.622 Type 2 diabetes mellitus with other skin ulcer (principal); L97.928 Non-pressure chronic ulcer of unspecified part of left lower leg with other specified severity; M25.552 Pain in left hip; S33.6XXA Sprain of sacroiliac joint, initial encounter; X58.XXXA Exposure to other specified factors, initial encounter; E11.22 Type 2 diabetes mellitus with diabetic chronic kidney disease; N18.9 Chronic kidney disease, unspecified; Z89.511 Acquired absence of right leg below knee; Z87.891 Personal history of nicotine dependence
CPT/HCPCS: 36415; 73502; 80053; 82550; 83690; 85025; 85651; 86038; 93971; 96372; 99284; A9270

== ENCOUNTER 2020-08-28 08:45 | Outpatient (CLI) | payer MEDICARE ==
[2020-08-28 10:19] LABS: ALBUMIN/GLOBULIN RATIO 0.8 (1.0-2.2); BILIRUBIN,TOTAL 0.6 mg/dL (0.2-1.0); CALCIUM 8.6 mg/dL (8.5-10.3); CREATININE 1.6 mg/dL (0.6-1.2); TOTAL PROTEIN 6.8 g/dL (6.7-8.2)
[2020-08-28 11:59] LABS: HEMOGLOBIN A1c% 14.5 % (4.27-6.07)
== END 2020-08-28 23:59 | disposition home or self-care (01) ==
LOC: LAB.R 08:45
PROVIDERS: ATTEND Nurse Practitioner
DX: E11.22 Type 2 diabetes mellitus with diabetic chronic kidney disease (principal); N18.9 Chronic kidney disease, unspecified
CPT/HCPCS: 80053; 83036

== ENCOUNTER 2020-09-08 16:02 | Outpatient (CLI) | payer MEDICARE | END 2020-09-08 16:03 | disposition critical access hospital (66) | LOC: EMS 16:02 | PROVIDERS: ATTEND Surgery | DX: R56.9 Unspecified convulsions (principal) | CPT/HCPCS: A0425; A0427 ==

== ENCOUNTER 2020-09-08 16:10 | Emergency (ER) | payer MEDICARE ==
--- NOTE | 2020-09-08 16:26 | ED Physician Documentation ---
History of Present Illness - Stated complaint Stated Complaint: SZ - Chief complaint Chief Complaint: Neuro - History obtained from History obtained from: Patient, EMS - History of Present Illness Timing: Today Pain level max: 3 Pain level now: 2 - Additonal information Additional information: 59-year-old male with a history of seizures presents after a seizure at home today. No changes to his medications. No missed doses. No recent illnesses. He states he currently has a headache. No other injuries. Nothing makes it better or worse. Review of Systems Constitutional: denies: Fever, Chills GI: denies: Nausea, Vomiting, Diarrhea Skin: denies: Rash Musculoskeletal: denies: Neck pain, Back pain Neurologic: reports: Seizure. denies: Focal weakness, Numbness PD PAST MEDICAL HISTORY - Past Medical History Cardiovascular: None Respiratory: None Neuro: CVA, Seizure disorder Endocrine/Autoimmune: None : Frequency Psych: Depression, Anxiety - Past Surgical History Past Surgical History: Yes General: Splenectomy Ortho: Amputation - Present Medications Home Medications: Ambulatory Orders Medication Instructions Recorded Confirmed Hydrocodone/Acetaminophen [[place] 1 each PO Q6H PRN #15 tablet 08/21/20 09/08/20 5-325 Tablet] Mupirocin 1 applic TP DAILY #15 g 08/21/20 09/08/20 Tizanidine HCl 4 mg PO BID #30 capsule 08/21/20 09/08/20 Apixaban [Eliquis] 5 mg PO BID 09/08/20 09/08/20 Atorvastatin Calcium 80 mg PO DAILY PM 09/08/20 09/08/20 Carvedilol [Coreg] 25 mg PO BID 09/08/20 09/08/20 Clopidogrel [Plavix] 75 mg PO ONCE 09/08/20 09/08/20 Divalproex Sodium [Depakote ER] 500 mg PO TID 09/08/20 09/08/20 Gabapentin 300 mg PO TID 09/08/20 09/08/20 Insulin Glargine [Lantus Solostar] 25 unit SQ BID 09/08/20 09/08/20 Insulin Lispro 0 unit SQ AC 09/08/20 09/08/20 Losartan Potassium 100 mg PO DAILY PM 09/08/20 09/08/20 Spironolactone 25 mg PO DAILY 09/08/20 09/08/20 amLODIPine [Norvasc] 10 mg PO DAILY 09/08/20 09/08/20 - Allergies Allergies/Adverse Reactions: Allergies Allergy/AdvReac Type Severity Reaction Status Date / Time daptomycin Allergy Rash Verified 09/08/20 16:22 vancomycin Allergy Rash Verified 09/08/20 16:22 - Social History Does the pt smoke?: Yes Smoking Status: Former smoker Does the pt drink ETOH?: Yes Does the pt have substance abuse?: No - Immunizations Immunizations are current?: No - POLST Patient has POLST: No PD ED PE NORMAL - Vitals Vital signs reviewed: Yes - General General: Alert and oriented X 3, No acute distress, Well developed/nourished - HEENT HEENT: Atraumatic, PERRL, Ears normal, Moist mucous membranes, Pharynx benign, Other (No tongue biting. 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, No motor deficit, No sensory deficit, Normal speech Eye Opening: Spontaneous Motor: Obeys Commands Verbal: Oriented GCS Score: 15 - Psych Psych: Normal mood, Normal affect Results - Vitals Vitals: Vital Signs - 24 hr 09/08/20 09/08/20 09/08/20 16:18 17:05 17:35 Temperature 36.4 C L 36.6 C Heart Rate 81 77 69 Respiratory 16 20 13 Rate Blood Pressure 154/92 H 114/79 99/72 O2 Saturation 98 94 94 Oxygen O2 Source Room air - Labs Labs: Laboratory Tests 09/08/20 09/08/20 09/08/20 16:37 16:37 16:37 WBC 12.9 H RBC 4.63 L Hgb 13.7 L Hct 39.1 L MCV 84.4 MCH 29.6 MCHC 35.0 RDW 12.6 Plt Count 361 MPV 11.4 Neut # (Auto) 5.5 Lymph # (Auto) 5.3 H Turner # (Auto) 1.3 H Eos # (Auto) 0.6 Baso # (Auto) 0.2 H Absolute Nucleated RBC 0.00 Band Neuts % (Manual) Not Reportable Abnorm Lymph % (Manual) Not Reportable Nucleated RBC % 0.0 Neutrophils # (Manual) Not Reportable Lymphocytes # (Manual) Not Reportable Monocytes # (Manual) Not Reportable Eosinophils # (Manual) Not Reportable Basophils # (Manual) Not Reportable Differential Comment MANUAL=AUTO DIFF Manual Slide Review Indicated Platelet Estimate NORMAL (130-450,000) Platelet Morphology NORMAL APPEARANCE RBC Morph Micro Appear NORMAL APPEARANCE Sodium 136 Potassium 3.7 Chloride 104 Carbon Dioxide 20 L Anion Gap 12.0 BUN 38 H Creatinine 1.7 H Estimated GFR (MDRD) 42 L Glucose 69 L Calcium 9.1 Total Bilirubin 0.4 AST 17 ALT 20 Alkaline Phosphatase 91 Total Protein 7.4 Albumin 3.1 L Globulin 4.3 H Albumin/Globulin Ratio 0.7 L Lipase 25 Last Dose Date Not Reportable Last Dose Time Not Reportable Valproic Acid 41.4 - Rads (name of study) Head CT Radiology: Prelim report reviewed, EMP read contemporaneously, See rad report (No acute intracranial abnormality) PD MEDICAL DECISION MAKING - ED course Complexity details: reviewed results, re-evaluated patient, considered differential, d/w patient ED course: 59-year-old male presents to the emergency department after a seizure today. He was at his normal mental baseline. No significant lab abnormalities, mildly low Depakote level. No acute findings on head CT. No traumatic injuries. Ambulating well. Does have a right BKA. Patient counseled regarding signs and symptoms for which I believe and urgent re-evaluation would be necessary. Patient with good understanding of and agreement to plan and is comfortable going home at this time This document was made in part using voice recognition software. While efforts are made to proofread this document, sound alike and grammatical errors may occur. Departure - Departure Disposition: 01 Home, Self Care Clinical Impression: Recurrent seizures Condition: Good Instructions: ED Seizure Recurrent Follow-Up: your,doctor in 3 days [Other] Comments: Follow-up with your doctor for further care. You do not have any significant lab abnormalities at this time. Your Depakote level is slightly low at 40. They may want to increase this. Discharge Date/Time: 09/08/20 18:13
[2020-09-08 16:48] LABS: BASOPHILS # (AUTO) 0.2 10^3/uL (0.0-0.1); BASOPHILS % (AUTO) 1.5 %; EOSINOPHILS # (AUTO) 0.6 10^3/uL (0.0-0.7); EOSINOPHILS % (AUTO) 4.3 %; HGB - HEMOGLOBIN 13.7 g/dL (14.0-18.0); LYMPHOCYTES # (AUTO) 5.3 10^3/uL (1.5-3.5); LYMPHOCYTES % (AUTO) 41.3 %; MEAN CORPUSCULAR HEMOGLOBIN 29.6 pg (27.0-31.0); MEAN CORPUSCULAR VOLUME 84.4 fL (80.0-94.0); MEAN PLATELET VOLUME 11.4 fL (7.4-11.4); MONOCYTES # (AUTO) 1.3 10^3/uL (0.0-1.0); MONOCYTES % (AUTO) 10.1 %; NEUTROPHILS # (AUTO) 5.5 10^3/uL (1.5-6.6); PLT - PLATELET COUNT 361 10^3/uL (130-450); RED BLOOD COUNT 4.63 10^6/uL (4.70-6.10); RED CELL DISTRIBUTION WIDTH 12.6 % (12.0-15.0); WHITE BLOOD COUNT 12.9 x10^3/uL (4.8-10.8)
[2020-09-08 17:01] LABS: ALBUMIN 3.1 g/dL (3.2-5.5); ALBUMIN/GLOBULIN RATIO 0.7 (1.0-2.2); BILIRUBIN,TOTAL 0.4 mg/dL (0.2-1.0); CALCIUM 9.1 mg/dL (8.5-10.3); CREATININE 1.7 mg/dL (0.6-1.2); TOTAL PROTEIN 7.4 g/dL (6.7-8.2)
[2020-09-08 17:03] LABS: VALPROIC ACID (DEPAKOTE) 41.4 ug/mL
--- NOTE | 2020-09-08 17:12 | CT Report ---
PROCEDURE: HEAD WO INDICATIONS: seizure, head pain TECHNIQUE: Noncontrast 4.5 mm thick angled axial sections acquired from the foramen magnum to the vertex. For r adiation dose reduction, the following was used: automated exposure control, adjustment of mA and/or kV according to patient size. COMPARISON: Prior head CT examinations, 08/03/2020, 07/31/2020 FINDINGS: Image quality: Excellent. CSF spaces: Basal cisterns are patent. No extra-axial fluid collections. Ventricles are normal in size and shape. Brain: No midline shift. No intracranial masses or hemorrhage. Garcia-white matter interface is norm al. Mild brain parenchymal volume loss can be seen, with areas of chronic small vessel ischemic bart nge. Skull and face: Calvarium and visualized facial bones are intact, without suspicious lesions. Sinuses: Visualized sinuses and mastoids are clear. IMPRESSION: Unremarkable head CT for age. Stable from priors. A cause of seizures is not identified. If it would be helpful for clinical management decision making, please consider a dedicated brain MRI seizure protocol (without and with contrast) for further evaluation (assuming that there is no con traindication). Reviewed by: Nolan Brar MD on 09/08/2020 4:11 PM [facility] Approved by: Nolan Brar MD on 09/08/2020 4:11 PM [facility] Station ID: [id number]
[2020-09-08 17:24] LABS: PLATELET ESTIMATE, MANUAL NORMAL (130-450,000) (NORMAL); PLATELET MORPHOLOGY NORMAL APPEARANCE (NORMAL); RBC MORPHOLOGY (MULTIPLE) NORMAL APPEARANCE (NORMAL)
[2020-09-08 17:25] LABS: DIFFERENTIAL COMMENT MANUAL=AUTO DIFF
[2020-09-08] MEDS ORDERED: LORazepam 2 MG/ML VIAL IVP STA (17:25)
[2020-09-08 17:36] VITALS: BP 99/72
== END 2020-09-08 18:13 | disposition home or self-care (01) ==
LOC: EDUNIT# → ED 16:10
DX: G40.909 Epilepsy, unspecified, not intractable, without status epilepticus (principal); Z87.891 Personal history of nicotine dependence
CPT/HCPCS: 36415; 70450; 80053; 80164; 83690; 85025; 99283; 99284

== ENCOUNTER 2020-10-16 22:21 | Emergency (ER) | payer MEDICARE ==
[2020-10-16 22:51] LABS: BASOPHILS # (AUTO) 0.1 10^3/uL (0.0-0.1); BASOPHILS % (AUTO) 1.3 %; EOSINOPHILS # (AUTO) 0.5 10^3/uL (0.0-0.7); EOSINOPHILS % (AUTO) 4.9 %; HGB - HEMOGLOBIN 13.6 g/dL (14.0-18.0); LYMPHOCYTES # (AUTO) 4.1 10^3/uL (1.5-3.5); LYMPHOCYTES % (AUTO) 39.5 %; MEAN CORPUSCULAR HEMOGLOBIN 29.4 pg (27.0-31.0); MEAN CORPUSCULAR HGB CONC 34.2 g/dL (32.0-36.0); MEAN PLATELET VOLUME 11.4 fL (7.4-11.4); MONOCYTES % (AUTO) 9.5 %; NEUTROPHILS # (AUTO) 4.6 10^3/uL (1.5-6.6); NEUTROPHILS % (AUTO) 44.3 %; PLT - PLATELET COUNT 364 10^3/uL (130-450); RED BLOOD COUNT 4.63 10^6/uL (4.70-6.10); RED CELL DISTRIBUTION WIDTH 13.2 % (12.0-15.0); WHITE BLOOD COUNT 10.3 x10^3/uL (4.8-10.8)
[2020-10-16 22:55] LABS: BILIRUBIN,URINE NEGATIVE (NEGATIVE); CLARITY,URINE CLEAR (CLEAR); GLUCOSE, URINE (UA) >=1000 mg/dL (NEGATIVE); KETONES,URINE (UA) NEGATIVE (NEGATIVE); LEUKOCYTE ESTERASE, URINE NEGATIVE (NEGATIVE); NITRITE,URINE NEGATIVE (NEGATIVE); OCCULT BLOOD,URINE TRACE-INTA (NEGATIVE); PH,URINE 5.5 PH (5.0-7.5); PROTEIN,URINE 100 mg/dL (NEGATIVE); UROBILINOGEN,URINE 0.2 (NORMAL) E.U./dL (NORMAL)
[2020-10-16 23:07] LABS: ALBUMIN 3.3 g/dL (3.2-5.5); ALBUMIN/GLOBULIN RATIO 0.8 (1.0-2.2); BACTERIA,URINE Few /HPF (None Seen); BILIRUBIN,TOTAL 0.3 mg/dL (0.2-1.0); CALCIUM 8.7 mg/dL (8.5-10.3); CREATININE 1.9 mg/dL (0.6-1.2); RBC,URINE 0-5 /HPF (0-5); SQUAMOUS EPITHELIAL CELL,UR FEW Squamous (<= Few); TOTAL PROTEIN 7.6 g/dL (6.7-8.2); YEAST,URINE PRESENT
--- NOTE | 2020-10-16 23:26 | ED Physician Documentation ---
PD HPI ABD PAIN - Stated complaint Stated Complaint: ABD PX/DIARRHEA - Chief complaint Chief Complaint: Abd Pain - History obtained from History obtained from: Patient - History of Present Illness Timing - onset: How many weeks ago (1) Timing - details: Gradual onset Quality: Cramping Location: All over / everywhere Radiation: No: Chest, , Lower back, Left flank, Left shoulder, Right flank, Right shoulder, Upper back Improved by: Other (nothing) Worsened by: Eating Associated symptoms: Nausea, Vomiting (one episode but otherwise tolerating PO). No: Fever Similar symptoms before: Has not had sx before Recently seen: Emergency Dept - Additional information Additional information: [facility]th [facility] ED visit in 2 months (unrelated c/o previous visits). FIONA reflects 20 ED visits to several different [place] EDs over past 12 months with many inpatient stays as well. He says he had upper endoscopy last week at [facility] but does not know results. presents c/o 1 week abdominal cramping, 2-3 days of diarrhea. 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) Review of Systems Constitutional: reports: Reviewed and negative Cardiac: reports: Reviewed and negative Respiratory: reports: Reviewed and negative GI: reports: Abdominal Pain, Nausea, Vomiting, Diarrhea : denies: Dysuria, Frequency Neurologic: reports: Reviewed and negative PD PAST MEDICAL HISTORY - Past Medical History Cardiovascular: None Respiratory: None Neuro: CVA, Seizure disorder Endocrine/Autoimmune: Type 2 diabetes : Frequency Psych: Depression, Anxiety - Past Surgical History Past Surgical History: Yes General: Splenectomy Ortho: Amputation - Present Medications Home Medications: Ambulatory Orders Medication Instructions Recorded Confirmed Hydrocodone/Acetaminophen [[place] 1 each PO Q6H PRN #15 tablet 08/21/20 10/16/20 5-325 Tablet] Tizanidine HCl 4 mg PO BID #30 capsule 08/21/20 10/16/20 Apixaban [Eliquis] 5 mg PO BID 09/08/20 10/16/20 Atorvastatin Calcium 80 mg PO DAILY PM 09/08/20 10/16/20 Carvedilol [Coreg] 25 mg PO BID 09/08/20 10/16/20 Clopidogrel [Plavix] 75 mg PO ONCE 09/08/20 10/16/20 Divalproex Sodium [Depakote ER] 500 mg PO TID 09/08/20 10/16/20 Gabapentin 300 mg PO TID 09/08/20 10/16/20 Insulin Glargine [Lantus Solostar] 25 unit SQ BID 09/08/20 10/16/20 Insulin Lispro 0 unit SQ AC 09/08/20 10/16/20 Losartan Potassium 100 mg PO DAILY PM 09/08/20 10/16/20 Spironolactone 25 mg PO DAILY 09/08/20 10/16/20 amLODIPine [Norvasc] 10 mg PO DAILY 09/08/20 10/16/20 - Allergies Allergies/Adverse Reactions: Allergies Allergy/AdvReac Type Severity Reaction Status Date / Time daptomycin Allergy Rash Verified 10/16/20 22:23 vancomycin Allergy Rash Verified 10/16/20 22:23 - Social History Does the pt smoke?: No Smoking Status: Former smoker Does the pt drink ETOH?: Yes Does the pt have substance abuse?: No - Immunizations Immunizations are current?: No - POLST Patient has POLST: No PD ED PE NORMAL - Vitals Vital signs reviewed: Yes - General General: Alert and oriented X 3, No acute distress, Other (obese) - HEENT HEENT: Moist mucous membranes - Neck Neck: Supple, no meningeal sign - Cardiac Cardiac: RRR, No murmur - Respiratory Respiratory: No respiratory distress, Clear bilaterally - Abdomen Abdomen: Normal bowel sounds, Soft, Non tender - Derm Derm: Normal color, Warm and dry - Extremities Extremities: Other (right BKA) - Neuro Neuro: Alert and oriented X 3 Results - Vitals Vitals: Oxygen O2 Source Room air - Labs Labs: Laboratory Tests 10/16/20 10/16/20 10/16/20 22:45 22:45 22:45 WBC 10.3 RBC 4.63 L Hgb 13.6 L Hct 39.8 L MCV 86.0 MCH 29.4 MCHC 34.2 RDW 13.2 Plt Count 364 MPV 11.4 Neut # (Auto) 4.6 Lymph # (Auto) 4.1 H [place] # (Auto) 1.0 Eos # (Auto) 0.5 Baso # (Auto) 0.1 Absolute Nucleated RBC 0.00 Nucleated RBC % 0.0 Sodium 132 L Potassium 4.4 Chloride 97 L Carbon Dioxide 23 Anion Gap 12.0 BUN 27 H Creatinine 1.9 H Estimated GFR (MDRD) 37 L Glucose 431 H POC Whole Bld Glucose Calcium 8.7 Total Bilirubin 0.3 AST 13 ALT 15 Alkaline Phosphatase 108 Total Protein 7.6 Albumin 3.3 Globulin 4.3 H Albumin/Globulin Ratio 0.8 L Lipase 24 Urine Color YELLOW Urine Clarity CLEAR Urine pH 5.5 Ur Specific [place] 1.015 Urine Protein 100 H Urine Glucose (UA) >=1000 H Urine Ketones NEGATIVE Urine Occult Blood TRACE-INTA Urine Nitrite NEGATIVE Urine Bilirubin NEGATIVE Urine Urobilinogen 0.2 (NORMAL) Ur Leukocyte Esterase NEGATIVE Urine RBC 0-5 Urine WBC 0-3 Ur Squamous Epith Cells FEW Squamous Urine Bacteria Few Urine Yeast PRESENT Ur Microscopic Review INDICATED Urine Culture Comments NOT INDICATED Serum Ketones 10/16/20 10/17/20 10/17/20 22:45 01:15 01:41 WBC RBC Hgb Hct MCV MCH MCHC RDW Plt Count MPV Neut # (Auto) Lymph # (Auto) [place] # (Auto) Eos # (Auto) Baso # (Auto) Absolute Nucleated RBC Nucleated RBC % Sodium Potassium Chloride Carbon Dioxide Anion Gap BUN Creatinine Estimated GFR (MDRD) Glucose POC Whole Bld Glucose 56 L* 56 L* Calcium Total Bilirubin AST ALT Alkaline Phosphatase Total Protein Albumin Globulin Albumin/Globulin Ratio Lipase Urine Color Urine Clarity Urine pH Ur Specific [place] Urine Protein Urine Glucose (UA) Urine Ketones Urine Occult Blood Urine Nitrite Urine Bilirubin Urine Urobilinogen Ur Leukocyte Esterase Urine RBC Urine WBC Ur Squamous Epith Cells Urine Bacteria Urine Yeast Ur Microscopic Review Urine Culture Comments Serum Ketones NEGATIVE 10/17/20 10/17/20 10/17/20 02:13 03:33 05:21 WBC RBC Hgb Hct MCV MCH MCHC RDW Plt Count MPV Neut # (Auto) Lymph # (Auto) [place] # (Auto) Eos # (Auto) Baso # (Auto) Absolute Nucleated RBC Nucleated RBC % Sodium Potassium Chloride Carbon Dioxide Anion Gap BUN Creatinine Estimated GFR (MDRD) Glucose POC Whole Bld Glucose 180 H 181 H 181 H Calcium Total Bilirubin AST ALT Alkaline Phosphatase Total Protein Albumin Globulin Albumin/Globulin Ratio Lipase Urine Color Urine Clarity Urine pH Ur Specific [place] Urine Protein Urine Glucose (UA) Urine Ketones Urine Occult Blood Urine Nitrite Urine Bilirubin Urine Urobilinogen Ur Leukocyte Esterase Urine RBC Urine WBC Ur Squamous Epith Cells Urine Bacteria Urine Yeast Ur Microscopic Review Urine Culture Comments Serum Ketones PD MEDICAL DECISION MAKING - ED course Complexity details: reviewed old records, reviewed results, re-evaluated patient, considered differential, d/w patient ED course: NAD during long ED stay (over 9 hours). chief complaint is frequent watery/liquid stools with abdominal cramping. despite this, he did not have any stool during this ED stay from which to test for bacterial etiologies. he was hydrated and reevaluated regularly, began to c/o feeling anxious and found to have finger stick in 50s. given juice and some food, recheck fingerstick still in 50s and now patient says he is hallucinating, seeing th ings. given 1 amp d50 which resulted in resolution if these symptoms and subsequent fingersticks were in 180s and thus eventually he was able to be discharged. he was in NAD on this last reevaluation by me and was comfortable with plan for d/c home Departure - Departure Disposition: 01 Home, Self Care Clinical Impression: Diarrhea Qualifiers: Diarrhea type: unspecified type Qualified Code(s): R19.7 - Diarrhea, unspecified Condition: Good Instructions: ED Vomiting Diarrhea Nonspecific Ad Discharge Date/Time: 10/17/20 07:38
[2020-10-16] MEDS ORDERED: SODIUM CHLORIDE 0.9% 1,000 ML IV STA (23:58)
[2020-10-17] MEDS ORDERED: DEXTROSE 50% ABBOJECT 25 GM/50 ML SYRINGE IVP STA (01:47)
[2020-10-17 06:08] VITALS: BP 126/84
== END 2020-10-17 07:38 | disposition home or self-care (01) ==
LOC: ED 22:21
DX: T38.3X1A Poisoning by insulin and oral hypoglycemic [antidiabetic] drugs, accidental (unintentional), initial encounter (principal); F41.9 Anxiety disorder, unspecified; Y92.238 Other place in hospital as the place of occurrence of the external cause; R44.1 Visual hallucinations; E11.69 Type 2 diabetes mellitus with other specified complication; R19.7 Diarrhea, unspecified; Z87.891 Personal history of nicotine dependence; Z79.4 Long term (current) use of insulin
CPT/HCPCS: 36415; 80053; 81001; 81003; 82009; 83690; 85025; 87086; 96361; 96374; 99284